=== PATIENT | male | born 1945 | race Caucasian/White ===

== ENCOUNTER 2017-11-03 01:48 | Observation (INO) | payer OTHER ==
[~2017-11-03] VITALS: Ht 175.3 cm; Wt 98.0 kg
[2017-11-03] VITALS (7 sets, daily range): BP systolic 117–144; BP diastolic 59–82; PULSE 67–128; RESP 16–20; TEMP 97.8–98.8; O2SAT 91–99
[2017-11-03] MEDS ORDERED: ASPI-516 CHEW (02:07)
[2017-11-03] MEDS ORDERED: ATOR10TA15 PO (02:07)
[2017-11-03] MEDS ORDERED: FLUO10TA PO ×2 (02:07→02:08)
[2017-11-03] MEDS ORDERED: OMEP10CA PO (02:08)
[2017-11-03] MEDS ORDERED: HYDR-3801 PO (02:08)
--- NOTE | 2017-11-03 02:10 | PD ---
HPI Chief Complaint: Fall Time Seen by Provider: 02:02 Travel History International Travel<30 days: No Contact w/Intl Traveler<30days: No Traveled to known affect area: No History of Present Illness HPI The patient is a 72 year old male who presents to the [facility] emergency department with a history of falling off of the ladder on which he was 3-5 feet up at approximately 5 PM today. The patient was taken to the [facility]. The patient was diagnosed with a subdural hematoma and accepted in transfer to this facility by the neurosurgeon on-call, Dr. Holt. The patient arrives with a cervical collar in place. He is unsure why the cervical collar is still on. The patient reports that the latter caused him to fall because it was on wet ground and sunk down on one side into the ground. He believes that he hit a tree stump with his head. He is unsure whether he had loss of consciousness. He was amnestic to the events just after the accident. The patient reports that he had low back pain associated with this. He reports that he has a history of low back surgery 40 years ago and has not had any problems with his back since then. He denies having any numbness or tingling to his extremities. He denies having any weakness of his extremities. He is unsure whether his tetanus was updated at that facility. He cannot recall when his tetanus was last updated. [facility] The patient was treated with morphine and Zofran for pain prior to arrival. On review of systems otherwise, patient denies having any known recent fevers, cough or congestion, chest pain, shortness of breath, abdominal pain, vomiting, diarrhea, urinary symptoms, or other neurologic symptoms. [facility] Past Medical History Narrative Medical The patient's past medical history is significant for hyperlipidemia, hypertension, and palpitations. Hx Anticoagulant Therapy: Yes (baby aspirin) Cardiovascular Problems: Yes (palpitations) High Cholesterol: Yes GERD: Yes Hypertension: Yes Past Surgical History Narrative Surgical The patient's past surgical history is significant for penile implant, radial keratotomy, and cardiac ablation Cardiac Surgery: Yes (ablasion) Genitourinary Surgery: Yes (penile implant) Social History Alcohol Use: Yes (2 drinks daily) Tobacco Use: No Substance Use: No Allergies-Medications (Allergen,Severity, Reaction): Coded Allergies: No Known Allergies (Verified Allergy, Unknown, 11/03/17) Reported Meds & Prescriptions Reported Meds & Active Scripts Active [place] (Hydrocodone-Acetaminophen) 5 Mg-325 Mg Tab 1 Tab PO Q6H PRN Reported Fluoxetine (Fluoxetine HCl) 10 Mg Tab 10 Mg PO DAILY Omeprazole 10 Mg Cap 10 Mg PO DAILY Hydralazine (Hydralazine HCl) 100 Mg Tab 100 Mg PO BID Take with meals Atorvastatin (Atorvastatin Calcium) 10 Mg Tab 10 Mg PO HS Aspirin 81 Mg Chew 81 Mg CHEW DAILY Review of Systems Except as stated in HPI: all other systems reviewed are Neg General / Constitutional: No: Fever Eyes: No: Visual changes HENT: Positive: Headaches, Neck Pain, No: Neck Stiffness Cardiovascular: No: Chest Pain or Discomfort Respiratory: No: Shortness of Breath Gastrointestinal: No: Abdominal Pain Genitourinary: No: Dysuria Musculoskeletal: Positive: Arthralgias, Pain Skin: No Rash Neurologic: No: Weakness Psychiatric: No: Depression Endocrine: No: Polydipsia Hematologic/Lymphatic: No: Easy Bruising Physical Exam Narrative General: The patient is a well-developed well-nourished male in no acute distress. The patient is brought in with a C-spine collar in place. Head and Neck exam: Head is normocephalic atraumatic. No facial bone tenderness or increased facial bone mobility noted on palpation. Eyes: EOMI, pupils are equal round and reactive to light. Nose: Midline septum with pink mucous membranes Mouth: Dentition unremarkable. Moist mucus membranes. Posterior oropharynx is not erythematous. No tonsillar hypertrophy. Uvula midline. Airway patent. Neck: The patient is immobilized in a cervical collar. No tracheal deviation. The trachea appears midline. Cardiovascular: Regular rate and rhythm without murmurs, gallops, or rubs. No pulse deficit to the extremities on simultaneous auscultation and palpation of his radial artery. Lungs: Clear to auscultation bilaterally. No wheezes, rhonchi, or rales. No chest wall tenderness to palpation. No erythema or ecchymosis noted. No crepitus , step off, or flail segment noted. Abdomen: Soft, without tenderness to palpation in all 4 quadrants of the abdomen. No guarding, rebound, or rigidity. No erythema or ecchymosis noted. Extremities: No instability or pain noted on pelvic rock. No clubbing, cyanosis , or edema. 2+ pulses in all 4 extremities. No extremity tenderness or deformity noted on palpation or passive/ active range of motion. Back: No spinous process tenderness to palpation. No stepoff or crepitus noted. No costovertebral angle tenderness to palpation. No erythema or ecchymosis. Neurologic Exam: Cranial nerves 2-12 were intact on exam. Strength is 5/5 in all 4 extremities. No sensory deficits noted. Skin Exam: No rash noted. Intact skin that is warm and dry. Data Data Last Documented VS Vital Signs Date Time Temp Pulse Resp B/P (MAP) Pulse Ox O2 Delivery O2 Flow Rate FiO2 11/03/17 01:55 79 18 133/64 (87) 95 Room Air Orders Orders Admit Order (Ed Use Only) (11/03/17 02:51) Ct Brain W/O Iv Contrast(Rout) (11/03/17 07:00) MDM Medical Decision Making Medical Screen Exam Complete: Yes Emergency Medical Condition: Yes Medical Record Reviewed: Yes Differential Diagnosis Intracranial hemorrhage, versus cervical spine injury, versus thoracic spine injury, versus lumbar spine injury. Narrative Course During the course of the patient's emergency department visit, the patient's history, examination, and differential diagnosis were reviewed with the patient. The patient was placed on a gambling monitor with oximetry and frequent blood pressure monitoring. The patient had IV access obtained and blood work sent for analysis. The patient was morphine and Zofran just prior to arrival in the emergency department. The patient's laboratory studies were reviewed from the other facility and remarkable for a white count of 9.5, hemoglobin 14.5, platelets 156 with neutrophils 78.4, lymphocytes 10.6, PT 13.3, INR 1.0, PTT 22.4. Sodium was 141 , potassium 3.1, chloride 98, bicarb 33, glucose 132, BUN 17, creatinine 1.01. Radiology studies were reviewed from the other facility and remarkable for a CT scan of the brain that shows a thin, less than 2 mm left parafalcine subdural hematoma without significant associated mass-effect or midline shift. White matter hypoattenuation likely reflective of chronic microvascular angiopathic change. CT scan of the C-spine shows multilevel cervical degenerative spondylitic changes, no cervical vertebral body fracture detected, prevertebral soft tissues are within normal limits, straightening of the normal cervical lordosis which could be on the basis of spasm or patient positioning, levels of mild and mild to moderate canal stenosis, most prominent at C4-C5. No evidence of high-grade cervical spine canal stenosis or cord compression. Bony neural foraminal narrowing with levels demonstrating up to moderate stenosis. CT scan of the lumbar spine shows multilevel lumbar degenerative spondylitic changes, no lumbar vertebral body fracture detected, levels of mild and mild to moderate canal stenosis. The patient's chest x-ray showed no acute cardiopulmonary abnormality. Physician Communication Physician Communication The patient's case including history, pertinent physical examination findings, and laboratory studies were discussed with Dr. Holt. It was agreed that the patient would be admitted to Dr. Holt's service. Diagnosis Primary Impression: Subdural hematoma Additional Impression: Fall Qualified Codes: W19.XXXA - Unspecified fall, initial encounter Admitting Information Admitting Physician Requests: Admit Scripts Hydrocodone-Acetaminophen ([place]) 5 Mg-325 Mg Tab 1 TAB PO Q6H Y for PAIN, #30 TAB 0 Refills Prov: Alex Holt MD 11/03/17 Kristin Tuttle MD November 03, 2017 02:10
[2017-11-03] MEDS: ACETAMINOPHEN/HYDROcodone 325 MG/10 MG TAB PO PRN ×2 (05:57→09:59)
[2017-11-03] MEDS ORDERED: hydrALAZINE HCL 100 MG TAB PO SCH (09:00)
[2017-11-03] MEDS ORDERED: NON-FORMULARY DRUG (Omeprazole 10 MG) PO SCH (09:00)
[2017-11-03] MEDS ORDERED: PANTOPRAZOLE SOD 40 MG DELAYED RELEASE TAB PO SCH (09:00)
[2017-11-03] MEDS ORDERED: FLUoxetine HCL 10 MG CAP PO SCH (09:00)
--- NOTE | 2017-11-03 09:06 | RADRPT ---
EXAM DATE/TIME: 11/03/2017 08:10 [place] COMPARISON: No previous studies available for comparison. INDICATIONS : Trauma, fall. Subdural hematoma see at [facility]. RADIATION DOSE: 46.13 CTDIvol (mGy) MEDICAL HISTORY : Cardiovascular disease. Hypertension. SURGICAL HISTORY : None. ENCOUNTER: Initial ACUITY: 1 day PAIN SCALE: 4/10 LOCATION: cranial TECHNIQUE: Multiple contiguous axial images were obtained of the head. Using automated exposure control and adj ustment of the mA and/or kV according to patient size, radiation dose was kept as low as reasonably a chievable to obtain optimal diagnostic quality images. DICOM format image data is available electro nically for review and comparison. FINDINGS: Imaging through the brain demonstrates a small area of increased attenuation seen along the interhemi spheric fissure. This measures only approximately 1.8 mm in thickness. There is calcification within the interhemispheric fissure. This probably represents volume averaging with a small area of calcific ation. There is no significant mass effect associated with this. The ventricles are normal in size and configuration. No mass lesion is identified. The appearance of the posterior fossa is unremarkable. The visualized portions of sinuses orbit are intact. CONCLUSION: 1. There is a punctate area of increased density along the interhemispheric fissure measuring 1.8 mm. Presumably, this is the abnormality seen on the outside study. It is possible this represents calcif ication rather than a punctate area of subdural hemorrhage. No other abnormality is identified. Tremaine Carnes MD on November 03, 2017 at 8:19 Board Certified Radiologist. This report was verified electronically.
--- NOTE | 2017-11-03 11:50 | HHI.HP ---
HPI Service Neurosurgery Primary Care Physician [facility] History of Present Illness 72-year-old gentleman was working on his yard yesterday when he fell off a ladder about 4 feet in height. He relates that he fell on his back and then may have struck his head with questionable loss of consciousness although he is somewhat amnestic to the event. Initially he was confused and relates that about an hour later confusion resolved. He complains of headache and coccygeal area pain and initially had some nausea which has resolved. He was evaluated at [facility] emergency room and CT scan of the head obtained suggests the possibility of a small 2 mm parafalcine subdural hemorrhage compared to CT of the cervical spine and lumbar spine did not reveal any fractures or acute changes. He was transferred to [facility] for further management and arrived early this morning. He relates that the has had breakfast without any nausea or vomiting and he has been ambulating and voiding to the bathroom without any lightheadedness or dizziness or unsteadiness. Review of Systems Constitutional: DENIES: Diaphoretic episodes, Fatigue, Fever, Weight gain, Weight loss, Chills, Dizziness, Change in appetite, Night Sweats Endocrine: DENIES: Heat/cold intolerance, Polydipsia, Polyuria, Polyphagia Eyes: DENIES: Blurred vision, Diplopia, Eye inflammation, Eye pain, Vision loss , Photosensitivity, Double Vision Ears, nose, mouth, throat: DENIES: Tinnitus, Hearing loss, Vertigo, Nasal discharge, Oral lesions, Throat pain, Hoarseness, Ear Pain, Running Nose, Epistaxis, Sinus Pain, Toothache, Odynophagia Respiratory: DENIES: Apneas, Cough, Snoring, Wheezing, Hemoptysis, Sputum production, Shortness of breath Cardiovascular: DENIES: Chest pain, Palpitations, Syncope, Dyspnea on Exertion , PND, Lower Extremity Edema, Orthopnea, Claudication Gastrointestinal: DENIES: Abdominal pain, Black stools, Bloody stools, Constipation, Diarrhea, Nausea, Vomiting, Difficulty Swallowing, Anorexia Genitourinary: DENIES: Sexual dysfunction, Urinary frequency, Urinary incontinence, Urgency, Hematuria, Dysuria, Nocturia, Penile Discharge, Testicular Pain, Testicular Swelling Musculoskeletal: COMPLAINS OF: Back pain, DENIES: Joint pain, Muscle aches, Stiffness, Joint Swelling, Neck pain Integumentary: DENIES: Abnormal pigmentation, Nail changes, Pruritus, Rash Hematologic/lymphatic: DENIES: Bruising, Lymphadenopathy Immunologic/allergic: DENIES: Eczema, Urticaria Neurologic: DENIES: Abnormal gait, Headache, Localized weakness, Paresthesias, Seizures, Speech Problems, Tremor, Poor Balance Psychiatric: DENIES: Anxiety, Confusion, Mood changes, Depression, Hallucinations, Agitation, Suicidal Ideation, Homicidal Ideation, Delusions Past Family Social History Allergies: Coded Allergies: No Known Allergies (Verified Allergy, Unknown, 11/03/17) Past Medical History Hypertension, supraventricular tachycardia, gastroesophageal reflux, hyper lipidemia Reported Medications Fluoxetine (Fluoxetine HCl) 10 Mg Tab 10 Mg PO DAILY Omeprazole 10 Mg Cap 10 Mg PO DAILY Hydralazine (Hydralazine HCl) 100 Mg Tab 100 Mg PO BID Take with meals Atorvastatin (Atorvastatin Calcium) 10 Mg Tab 10 Mg PO HS Aspirin 81 Mg Chew 81 Mg CHEW DAILY Family History Unremarkable Social History He is and his is here with him he is a former smoker and admits to drinking 2 alcohol beverages a day Physical Exam Vital Signs Vital Signs Date Time Temp Pulse Resp B/P (MAP) Pulse Ox O2 Delivery O2 Flow Rate FiO2 11/03/17 08:55 69 11/03/17 08:00 97.8 75 20 133/82 (99) 97 11/03/17 04:46 72 18 117/59 (78) 95 Room Air 11/03/17 04:45 98.8 67 16 131/60 (83) 94 11/03/17 03:51 71 18 144/73 (96) 99 Room Air 11/03/17 01:55 79 18 133/64 (87) 95 Room Air 11/03/17 01:51 Physical Exam GENERAL: Well-nourished, well-developed patient. SKIN: Warm and dry. HEAD: Normocephalic and atraumatic. EYES: No scleral icterus. No injection or drainage. ENT: No nasal drainage noted. Mucous membranes pink. Airway patent. NECK: Supple, trachea midline. No JVD. CARDIOVASCULAR: Regular rate and rhythm without murmurs, gallops, or rubs. RESPIRATORY: Breath sounds equal bilaterally. No accessory muscle use. GASTROINTESTINAL: Abdomen soft, non-tender, nondistended. EXTREMITIES: No cyanosis or edema. BACK: Coccygeal area tenderness. NEUROLOGICAL: Awake and alert. Pupils Equal and reactive. EOMI. Face symmetric. Tongue midline. Cranial nerves II through XII intact. Motor and sensory grossly within normal limits. Five out of 5 muscle strength in all muscle groups. Normal speech. Normal comprehension. DTR's symmetric. Negative Minor' s reflex. Negative Babinski. Laboratory Lab studies done at [facility] with white blood cell count 9.5 hemoglobin 14.5 platelet count 156 PT 13.3 INR 1.0 PTT 22.4 sodium 141 potassium 3.1 BUN 17 creatinine 1.01 calcium 9.1 glucose 132 Imaging Last Impressions Head CT 11/03/17 0700 Signed Impressions: Service Date/Time: Friday, November 03, 2017 08:10 - CONCLUSION: 1. There is a punctate area of increased density along the interhemispheric fissure measuring 1.8 mm. Presumably, this is the abnormality seen on the outside study. It is possible this represents calcification rather than a punctate area of subdural hemorrhage. No other abnormality is identified. Tremaine Carnes MD Caprini VTE Risk Assessment Caprini VTE Risk Assessment: Mod/High Risk (score >= 2) VTE Pharm Contraindication: Hemorrhage Caprini Risk Assessment Model Point Value = 1 Point Value = 2 Point Value = 3 Point Value = 5 Age 41-60 Minor surgery BMI > 25 kg/m2 Swollen legs Varicose veins or History of unexplained or recurrent spontaneous Oral contraceptives or hormone replacement Sepsis (< 1 month) Serious lung disease, including pneumonia (< 1 month) Abnormal pulmonary function Acute myocardial infarction Congestive heart failure (< 1 month) History of inflammatory bowel disease Medical patient at bed rest Age 61-74 Arthroscopic surgery Major open surgery (> 45 min) Laparoscopic surgery (> 45 min) Malignancy Confined to bed (> 72 hours) Immobilizing plaster cast Central venous access Age >= 75 History of VTE Family history of VTE Factor V Leiden Prothrombin [id number] Lupus anticoagulant Anticardiolipin antibodies Elevated serum homocysteine Heparin-induced thrombocytopenia Other congenital or acquired thrombophilia Stroke (< 1 month) Elective arthroplasty Hip, pelvis, or leg fracture Acute spinal cord injury (< 1 month) Prophylaxis Regimen Total Risk Factor Score Risk Level Prophylaxis Regimen 0-1 Low Early ambulation 2 Moderate Order ONE of the following: *Sequential Compression Device (SCD) *Heparin 5000 units SQ BID 3-4 Higher Order ONE of the following medications: *Heparin 5000 units SQ TID *Enoxaparin/Lovenox 40 mg SQ daily (WT < 150 kg, CrCl > 30 mL/min) *Enoxaparin/Lovenox 30 mg SQ daily (WT < 150 kg, CrCl > 10-29 mL/min) *Enoxaparin/Lovenox 30 mg SQ BID (WT < 150 kg, CrCl > 30 mL/min) AND/OR *Sequential Compression Device (SCD) 5 or more Highest Order ONE of the following medications: *Heparin 5000 units SQ TID (Preferred with Epidurals) *Enoxaparin/Lovenox 40 mg SQ daily (WT < 150 kg, CrCl > 30 mL/min) *Enoxaparin/Lovenox 30 mg SQ daily (WT < 150 kg, CrCl > 10-29 mL/min) *Enoxaparin/Lovenox 30 mg SQ BID (WT < 150 kg, CrCl > 30 mL/min) AND *Sequential Compression Device (SCD) Assessment and Plan Assessment and Plan 72-year-old gentleman with a mild traumatic brain injury and small frontal parafalcine subdural hemorrhage versus calcification which is stable on follow- up imaging study. At this point other than some coccygeal area pain which is likely related to contusion is no other complaints and is neurologically intact. His vitals are also stable and is tolerating her regular diet and ambulating independently. This discussed at length with patient and and they request discharge home and will follow up with her primary care physician. Discussed the sequelae of concussion/mild head injury and they understand. Alex Holt MD November 03, 2017 11:50
[2017-11-03] MEDS ORDERED: NORC5TAB PO (11:52)
[2017-11-03] MEDS ORDERED: diphenhydrAMINE HCL 25 MG CAP PO PRN (12:00)
[2017-11-03] MEDS ORDERED: POTASSIUM CHLORIDE 10 MEQ CONTROLLED RELEASE TAB PO ONE (12:30)
[2017-11-03] MEDS ORDERED: ATORVASTATIN 10 MG TAB PO SCH (21:00)
== END 2017-11-03 13:53 | disposition home or self-care (01) ==
LOC: NEPE 01:48 → NEDA 02:54 → NEPGCP 04:46
PROVIDERS: ADMIT Neurological Surgery; ATTEND Neurological Surgery
DX: S06.5X0A Traumatic subdural hemorrhage without loss of consciousness, initial encounter (principal); M53.3 Sacrococcygeal disorders, not elsewhere classified; I10 Essential (primary) hypertension; E78.5 Hyperlipidemia, unspecified; K21.9 Gastro-esophageal reflux disease without esophagitis; M48.02 Spinal stenosis, cervical region; Z87.891 Personal history of nicotine dependence; Z79.82 Long term (current) use of aspirin; Z79.899 Other long term (current) drug therapy; W11.XXXA Fall on and from ladder, initial encounter
CPT/HCPCS: 70450; 99285; G0378